=== PATIENT | male | born 2000 | race Caucasian/White ===

== ENCOUNTER 2023-02-20 13:02 | Emergency (ER) | payer OTHER, SELFPAY ==
[2023-02-20 13:13] VITALS: BP 138/64; PULSE 60; RESP 18; TEMP 36.9; O2SAT 95; BMI 20.9
--- NOTE | 2023-02-20 13:13 | ED_ITS ---
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 No head injury no neck injury no back injury no numbness no weakness no tingling <MICHELLE Perez - Last Filed: 02/23/23 14:10> Related Data Home Medications: Previous Rx's Medication Instructions Recorded ibuprofen 600 mg tablet 600 mg PO Q6H PRN pain #20 tabs 02/20/23 <Shelli Herring NP - Last Filed: 02/20/23 13:16> Allergies/Adverse Reactions: Allergies Allergy/AdvReac Type Severity Reaction Status Date / Time No Known Allergies Allergy Verified 02/20/23 13:17 <Shelli Herring NP - Last Filed: 02/20/23 13:16> [facility] Past Medical History Source: nursing notes reviewed <MICHELLE Perez - Last Filed: 02/23/23 14:10> Social History Social History: Social History Alcohol intake: never Smoked in Last 30 Days: No Use of substances other than those prescribed or required for medical reasons: No Advance Directives: No Advance Directives Information Provided: No <Shelli Herring NP - Last Filed: 02/20/23 13:16> Physical Exam Vital Signs: Vital Signs: Last Vital Signs Temp 98.4 F 02/20/23 13:13 Pulse 60 02/20/23 13:13 Resp 18 02/20/23 13:13 BP 138/64 02/20/23 13:13 Pulse Ox 95 02/20/23 13:13 O2 Del Method Room Air 02/20/23 13:13 BMI result Body Mass Index 20.9 <Shelli Herring NP - Last Filed: 02/20/23 13:16> Vital Signs: Last Vital Signs Temp 98.4 F 02/20/23 13:13 Pulse 60 02/20/23 13:13 Resp 18 02/20/23 13:13 BP 138/64 02/20/23 13:13 Pulse Ox 95 02/20/23 13:13 O2 Del Method Room Air 02/20/23 13:13 BMI result Body Mass Index 20.9 <MICHELLE Perez - Last Filed: 02/23/23 14:10> General appearance is no distress Head is normocephalic atraumatic Neck is supple nontender Chest wall nontender The back full range of motion Extremities full range of motion x4 Right anterior thigh has a large abrasion and contusion, but there is no significant bony tenderness, patient has full range of motion in both hip and knee, he can bear weight easily and ambulates with a mild limp, neurovascular intact distal The left hand says some abrasion on the back of the hand, but otherwise there is full range of motion no significant bony tenderness no swelling there is full range of motion in all fingers and wrist with no discomfort, left and is neurovascular intact Extremities are otherwise normal <MICHELLE Perez - Last Filed: 02/23/23 14:10> Course Course Course Narrative: This is a rapid medical exam. Deferred additional HPI, ROS, PE to primary provider. 22yo male previously healthy left hand dominant here with left hand and right knee/thigh pain after a transmission fell on it. Last tetanus shot unknown. Will check x-rays. VSS <Shelli Herring NP - Last Filed: 02/20/23 13:16> This is a rapid medical exam. Deferred additional HPI, ROS, PE to primary provider. 22yo male previously healthy left hand dominant here with left hand and right knee/thigh pain after a transmission fell on it. Last tetanus shot unknown. Will check x-rays. VSS Patient refused x-rays of right thigh and left hand as he is using them without any problem and is having only mild discomfort from scrapes and bruising to right thigh and a scrape to the left hand He walks easily he could stand on right leg, he does have a mild limp from the abrasion/contusion of the right thigh, right hip and knee had full painless range of motion His left hand was completely normal except for the abrasion with no evidence of any tenderness or swelling, no tendon deficits He thinks he is up-to-date on tetanus shots does not want a shot now and refused the tetanus shot and said he will call his doctor to see if he needs 1 Well-appearing patient ambulating easily with no evidence of fracture is discharged <MICHELLE Perez - Last Filed: 02/23/23 14:10> Discharge Plan Discharge Clinical Impression: Abrasion, Contusion of right thigh, Contusion of right knee <Shelli Herring NP - Last Filed: 02/20/23 13:16> Patient Disposition: Home, Self-Care <Shelli Herring NP - Last Filed: 02/20/23 13:16> Additional Instructions: No sign of any broken bone or dangerous injury Return any time for severe worsening pain any worse condition or any concerns Check with primary doctor to make sure you are currently up-to-date on tetanus immunization, you did not want a shot today as you think your up-to-date You can use Tylenol or Motrin if needed <Shelli Herring NP - Last Filed: 02/20/23 13:16> Prescriptions: New ibuprofen 600 mg tablet 600 mg PO Q6H PRN (Reason: pain) Qty: 20 0RF <Shelli Herring NP - Last Filed: 02/20/23 13:16> Referrals: [facility] [Provider Group] (Right thigh contusion) Luigi Moss MD [Physician] - (Right knee injury) <Shelli Herring NP - Last Filed: 02/20/23 13:16> Stand Alone Forms: Work/School Release <Shelli Herring NP - Last Filed: 02/20/23 13:16> Interventions: ED Discharge Assessment Last Done: 02/20/23 14:50 <Shelli Herring NP - Last Filed: 02/20/23 13:16> Discharge Date/Time: 02/20/23 14:50 <Shelli Herring NP - Last Filed: 02/20/23 13:16>
--- NOTE | 2023-02-20 13:51 | PC.NURSE ---
pt is refusing Xray to hand. Provider not in [facility] area. waiting for provider return to inform
== END 2023-02-20 14:50 | disposition home or self-care (01) ==
PROVIDERS: Emergency Provider Emergency Medicine Emergency Medical Services
DX: S70.311A Abrasion, right thigh, initial encounter (principal); S80.01XA Contusion of right knee, initial encounter; Y29.XXXA Contact with blunt object, undetermined intent, initial encounter; Y93.9 Activity, unspecified; Y92.219 Unspecified school as the place of occurrence of the external cause; Y99.9 Unspecified external cause status
CPT/HCPCS: 99283